=== PATIENT | male | born 1940 | race Caucasian/White ===

== ENCOUNTER → 2017-06-21 | Outpatient (REF) | payer MEDICARE, OTHER | LOC: M LAB REF 09:36 | DX: N39.0 Urinary tract infection, site not specified (principal) | CPT/HCPCS: 87086 ==

== ENCOUNTER → 2017-07-01 | Outpatient (REF) | payer MEDICARE, OTHER ==
[2017-07-01 18:29] LABS: ANION GAP 9 MEQ/L (8-16); BLOOD UREA NITROGEN 31 MG/DL (7-18); CALCIUM LEVEL 8.2 MG/DL (8.8-10.2); CARBON DIOXIDE LEVEL 21 MEQ/L (21-32); CHLORIDE LEVEL 112 MEQ/L (98-107); CREATININE FOR GFR 2.42 MG/DL (0.70-1.30); GLOMERULAR FILTRATION RATE 27.7 (>42); GLUCOSE, FASTING 129 MG/DL (70-100); SODIUM LEVEL 142 MEQ/L (136-145)
== END ==
LOC: M SFHCCLAY 14:09
DX: R30.0 Dysuria (principal)
CPT/HCPCS: 80048

== ENCOUNTER → 2017-07-02 | Outpatient (REF) | payer MEDICARE, OTHER ==
[2017-07-02 19:51] LABS: APPEARANCE, URINE HAZY (CLEAR); BACTERIA, URINE AUTO 1+ (NEGATIVE); BILIRUBIN, URINE AUTO NEGATIVE (NEGATIVE); BLOOD, URINE BLOOD 1+ (NEGATIVE); COLOR, URINE YELLOW (YELLOW); GLUCOSE, URINE (UA) AUTO NEGATIVE (NEGATIVE); KETONE, URINE AUTO NEGATIVE (NEGATIVE); LEUKOCYTE ESTERASE, URINE AUTO 3+ (NEGATIVE); MUCUS, URINE SMALL (NEGATIVE); NITRITE, URINE AUTO NEGATIVE (NEGATIVE); PROTEIN, URINE AUTO NEGATIVE (NEGATIVE); RBC, URINE AUTO 2 /HPF (0-3); SPECIFIC GRAVITY URINE AUTO 1.006 (1.002-1.035); SQUAMOUS EPITHELIAL CELL UR AU 1 /HPF (0-6); UROBILINOGEN, URINE AUTO 0.2 mg/dL (0.0-2.0); WBC, URINE AUTO 68 /HPF (0-3)
== END ==
LOC: M SFHCCLAY 16:26
DX: R30.0 Dysuria (principal)
CPT/HCPCS: 81001

== ENCOUNTER → 2017-08-24 | Outpatient (CLI) | payer MEDICARE, BC, OTHER | LOC: M RAD 06:58 | DX: N40.1 Benign prostatic hyperplasia with lower urinary tract symptoms (principal); R33.9 Retention of urine, unspecified | CPT/HCPCS: 76857 ==

== ENCOUNTER → 2017-11-19 | Outpatient (REF) | payer MEDICARE, OTHER | LOC: M LAB REF 12:58 | DX: N39.0 Urinary tract infection, site not specified (principal) | CPT/HCPCS: 87086 ==

== ENCOUNTER 2018-02-12 10:40 | Emergency (ER) | payer MEDICARE, OTHER ==
[2018-02-12 12:09] LABS: BASO % 0.3 % (0.0-1.0); EOS # 0.1 10^3/uL (0.0-0.50); EOS % 1.5 % (0.0-3.0); HEMATOCRIT 44.6 % (42.0-52.0); HEMOGLOBIN 14.7 g/dl (13.5-17.5); IMMATURE GRANULOCYTE % 0.6 % (0-3.0); LYMPH # 0.8 10^3/uL (1.5-4.5); LYMPH % 12.1 % (24.0-44.0); MEAN CORPUSCULAR HEMOGLOBIN 31.7 pg (27.0-33.0); MEAN CORPUSCULAR VOLUME 96.3 fl (80.0-96.0); MONO # 0.7 10^3/uL (0.0-0.8); MONO % 10.6 % (0.0-5.0); NEUTROPHILS # 5.1 10^3/uL (1.8-7.7); NEUTROPHILS % 74.9 % (36.0-66.0); RED BLOOD COUNT 4.63 10^6/uL (4.30-6.10); WHITE BLOOD COUNT 6.8 10^3/uL (4.0-10.0)
[2018-02-12 12:33] LABS: PLATELET COUNT, AUTOMATED 90 10^3/uL (150-450)
[2018-02-12 12:34] LABS: IMMATURE PLATELET FRACTION % 5.7 % (0.0-10.9)
[2018-02-12 12:37] LABS: ALBUMIN 3.2 GM/DL (3.2-5.2); ALKALINE PHOSPHATASE 219 U/L (45-117); ALT/SGPT 82 U/L (12-78); ANION GAP 8 MEQ/L (8-16); AST/SGOT 86 U/L (7-37); BILIRUBIN,DIRECT 0.6 MG/DL (0.0-0.2); BILIRUBIN,TOTAL 1.3 MG/DL (0.2-1.0); BLOOD UREA NITROGEN 42 MG/DL (7-18); CALCIUM LEVEL 9.1 MG/DL (8.8-10.2); CARBON DIOXIDE LEVEL 22 MEQ/L (21-32); CHLORIDE LEVEL 110 MEQ/L (98-107); CREATININE FOR GFR 2.46 MG/DL (0.70-1.30); GLOMERULAR FILTRATION RATE 27.2 (>42); GLUCOSE, FASTING 134 MG/DL (70-100); LIPASE 269 U/L (73-393); POTASSIUM SERUM 4.5 MEQ/L (3.5-5.1); SODIUM LEVEL 140 MEQ/L (136-145); TOTAL PROTEIN 7.2 GM/DL (6.4-8.2)
[2018-02-12] MEDS: NS 1,000 ML IV (13:28)
[2018-02-12] MEDS: MORPHINE 4 MG/ML 1ML VIAL/SYRINGE (J2270) IV (13:29)
[2018-02-12 16:32] LABS: KETONE, URINE AUTO RFX NEGATIVE (NEGATIVE); MUCUS, URINE RFX SMALL (NEGATIVE); NITRITE, URINE AUTO RFX NEGATIVE (NEGATIVE); RBC, URINE AUTO RFX 30 /HPF (0-3); SPECIFIC GRAVITY UR AUTO RFX 1.016 (1.002-1.035); SQUAM EPITHELIAL CELL UR AURFX 0 /HPF (0-6)
[2018-02-12 16:34] LABS: LEUKOCYTE ESTERASE UR AUTO RFX 3+ (NEGATIVE); WBC, URINE AUTO RFX TNTC /HPF (0-3)
== END 2018-02-12 16:19 | disposition home or self-care (01) ==
LOC: M ED 10:40
DX: R59.0 Localized enlarged lymph nodes (principal); R10.9 Unspecified abdominal pain; I10 Essential (primary) hypertension; J98.9 Respiratory disorder, unspecified; E11.9 Type 2 diabetes mellitus without complications; N17.9 Acute kidney failure, unspecified; K92.9 Disease of digestive system, unspecified; Z87.440 Personal history of urinary (tract) infections; Z87.19 Personal history of other diseases of the digestive system; Z79.899 Other long term (current) drug therapy
CPT/HCPCS: J2270

== ENCOUNTER 2018-02-15 11:10 | Emergency (ER) | payer MEDICARE, BC, OTHER ==
[2018-02-15 11:56] LABS: BASO % 0.3 % (0.0-1.0); EOS % 0.3 % (0.0-3.0); HEMOGLOBIN 15.3 g/dl (13.5-17.5); IMMATURE GRANULOCYTE % 1.1 % (0-3.0); LYMPH # 0.9 10^3/uL (1.5-4.5); LYMPH % 13.1 % (24.0-44.0); MEAN CORPUSCULAR HEMOGLOBIN 31.9 pg (27.0-33.0); MEAN CORPUSCULAR VOLUME 93.8 fl (80.0-96.0); MONO % 13.8 % (0.0-5.0); NEUTROPHILS % 71.4 % (36.0-66.0); RED CELL DISTRIBUTION WIDTH 13.3 % (11.5-14.5)
[2018-02-15 12:32] LABS: IMMATURE PLATELET FRACTION % 8.4 % (0.0-10.9); PLATELET COUNT, AUTOMATED 55 10^3/uL (150-450)
[2018-02-15 12:35] LABS: ALBUMIN 2.8 GM/DL (3.2-5.2); ALBUMIN/GLOBULIN RATIO 0.78 (1.00-1.93); ALKALINE PHOSPHATASE 282 U/L (45-117); ALT/SGPT 59 U/L (12-78); ANION GAP 12 MEQ/L (8-16); AST/SGOT 82 U/L (7-37); BILIRUBIN,DIRECT 1.3 MG/DL (0.0-0.2); BLOOD UREA NITROGEN 46 MG/DL (7-18); CALCIUM LEVEL 8.6 MG/DL (8.8-10.2); CARBON DIOXIDE LEVEL 19 MEQ/L (21-32); CHLORIDE LEVEL 111 MEQ/L (98-107); CPK CREATINE PHOSPHOKINASE 79 U/L (39-308); CREATININE FOR GFR 2.62 MG/DL (0.70-1.30); GLOMERULAR FILTRATION RATE 25.3 (>42); GLUCOSE, FASTING 163 MG/DL (70-100); LIPASE 163 U/L (73-393); MB/CK RELATIVE INDEX 2.28 (< OR =4); POTASSIUM SERUM 4.6 MEQ/L (3.5-5.1); SODIUM LEVEL 142 MEQ/L (136-145); TOTAL PROTEIN 6.4 GM/DL (6.4-8.2); TROPONIN I < 0.02 NG/ML (< 0.10)
[2018-02-15] MEDS: NS 500 ML IV (12:55)
[2018-02-15] MEDS: ONDANSETRON 4MG/2ML VIAL (J2405) IV (12:55)
[2018-02-15] MEDS: CIPROFLOXACIN 200 MG in APPROPRIATE DILUENT 1 EA IV (12:56)
== END 2018-02-15 15:42 | disposition home or self-care (01) ==
LOC: M ED 11:10
DX: N39.0 Urinary tract infection, site not specified (principal); I25.10 Atherosclerotic heart disease of native coronary artery without angina pectoris; K75.9 Inflammatory liver disease, unspecified; Z87.442 Personal history of urinary calculi; Z79.899 Other long term (current) drug therapy
CPT/HCPCS: J0744